=== PATIENT | male | born 1955 | race American Indian/Alaskan Native ===

== ENCOUNTER 2020-03-17 17:46 | Emergency (ER) | payer SELFPAY ==
[2020-03-17 18:06] VITALS: BP 133/83
[2020-03-17] MEDS ORDERED: LIDOCAINE-MPF (1%) 10 MG/1 ML VIAL 5 ML INFILTRATI ONE (18:11)
[2020-03-17] MEDS ORDERED: BUPIVACAINE/PF (0.5%) 5 MG/1 ML 10 ML VIAL INFILTRATI ONE (18:11)
[2020-03-17] MEDS ORDERED: HYDROcodone/ACETAMINOPHEN 5-325 MG TAB PO ONE (18:11)
--- NOTE | 2020-03-17 18:20 | Emergency Department Report ---
- General Chief Complaint: Laceration/Recheck/Suture Stated Complaint: LFT FINGER LAC/PAIN Time Seen by Provider: 03/17/20 18:06 Source: patient Mode of arrival: Ambulatory Limitations: No Limitations - History of Present Illness Initial Comments: Patient is a 65-year-old male who presents emergency room with complaints of a laceration to the left pinky finger that occurred approximately 20 minutes prior to arrival. He states that he accidentally slipped and cut his finger with a drywall knife. He denies anything getting into the finger. He denies any glass involvement. He is able to move the pinky. He denies any numbness or weakness. Bleeding is currently controlled with a dressing placed by triage staff. He states he last had a tetanus immunization approximately 2 to 3 months ago. He has a past medical history of BPH. No allergies to medications. - Related Data Previous Rx's Medication Instructions Recorded Last Taken Type Acetaminophen/Codeine [Tylenol 1 tab PO Q6H PRN #10 tab 03/17/20 Unknown Rx /Codeine # 3 tab] cephALEXin [Keflex] 500 mg PO BID 7 Days #14 cap 03/17/20 Unknown Rx Allergies Allergy/AdvReac Type Severity Reaction Status Date / Time No Known Allergies Allergy Unverified 03/17/20 17:50 ED Review of Systems ROS: Stated complaint: LFT FINGER LAC/PAIN Other details as noted in HPI Comment: All other systems reviewed and negative ED Past Medical Hx - Past Medical History Previous Medical History?: Yes Additional medical history: BPH - Surgical History Past Surgical History?: No - Social History Smoking Status: Never Smoker Substance Use Type: None - Medications Home Medications: Home Medications Medication Instructions Recorded Confirmed Last Taken Type Acetaminophen/Codeine [Tylenol 1 tab PO Q6H PRN #10 tab 03/17/20 Unknown Rx /Codeine # 3 tab] cephALEXin [Keflex] 500 mg PO BID 7 Days #14 cap 03/17/20 Unknown Rx ED Physical Exam - General Limitations: No Limitations General appearance: alert, in no apparent distress - Head Head exam: Present: atraumatic, normocephalic - Eye Eye exam: Present: normal appearance - ENT ENT exam: Present: mucous membranes moist - Extremities Exam Extremities exam: Present: other (3 cm irregular circular flap present to the dorsal, distal left pinky, no muscle/tendon involvement, no obvious foreign body, FROM of the left wrist, hand, and digits, no deformity, no obvious joint laxity, neurovascularly intact) - Neurological Exam Neurological exam: Present: alert, oriented X3 - Psychiatric Psychiatric exam: Present: normal affect, normal mood - Skin Skin exam: Present: warm, dry ED Course Vital Signs 03/17/20 17:50 Temperature 98.2 F Pulse Rate 73 Respiratory 16 Rate Blood Pressure 133/83 O2 Sat by Pulse 96 Oximetry - Laceration /Wound Repair Left Distal Dorsal Finger Wound Location: upper extremity (dorsal surface of the distal left pinky) Wound Length (cm): 3 Wound's Depth, Shape: irregular, flap Wound Explored: clean Irrigated w/ Saline (ccs): 500 Betadine Prep?: Yes Anesthesia: 1% Lidocaine, 0.5% Sensorcaine Volume Anesthetic (ccs): 6 (3 cc of 1% lidocaine without epi, 3 cc of 0.5% Bupivacaine) Wound Debrided: moderate Wound Repaired With: sutures Suture Size/Type: 4:0 Number of Sutures: 11 Layer Closure?: No Sterile Dressing Applied?: Yes Progress: Wound irrigated with saline and thoroughly scrubbed with Betadine, no foreign body identified, no muscle or tendon involvement, digital block performed with 6 cc of anesthetic, it was a mix of 3 cc of 1% lidocaine without epinephrine and 3 cc of 0.5% bupivacaine, Betadine prep again, sterile gloves worn, sterile drapes applied, 4-0 Prolene used for skin closure, 11 sutures placed, patient tolerated well, bleeding controlled, sterile dressing applied, no complications ED Medical Decision Making - Medical Decision Making Patient is a 65-year-old male who presents emergency room with complaints of a laceration to the left pinky finger that occurred approximately 20 minutes prior to arrival. He states that he accidentally slipped and cut his finger with a drywall knife. He denies anything getting into the finger. He denies any glass involvement. He is able to move the pinky. He denies any numbness or weakness. Bleeding is currently controlled with a dressing placed by triage staff. He states he last had a tetanus immunization approximately 2 to 3 months ago. He has a past medical history of BPH. No allergies to medications. Vitals are normal. On exam: 3 cm irregular circular flap present to the dorsal, distal left pinky, no muscle/tendon involvement, no obvious foreign body, FROM of the left wrist, hand, and digits, no deformity, no obvious joint laxity, neurovascularly intact. Wound irrigated with saline and thoroughly scrubbed with Betadine and repaired per procedure note. Patient given prescription for Keflex and Tylenol with codeine. Advised patient Please take medication as prescribed. Do not drive or operate heavy machinery while taking pain medication. Please have sutures removed in 10 days. Keep area clean, dry, covered. May wash with soap and water and immediately dry. No hot tub, no pool, no soaking in water. Follow-up with a primary care doctor for reexamination. Return to emergency room for any new or worsening symptoms or any signs of infection despite antibiotic therapy. Critical care attestation.: If time is entered above; I have spent that time in minutes in the direct care of this critically ill patient, excluding procedure time. ED Disposition Clinical Impression: Laceration of left little finger Qualifiers: Encounter type: initial encounter Damage to nail status: without damage Foreign body presence: without foreign body Qualified Code(s): S61.217A - Laceration without foreign body of left little finger without damage to nail, initial encounter Disposition: - TO HOME OR SELFCARE Is pt being admited?: No Does the pt Need Aspirin: No Condition: Stable Instructions: Suture Care (ED), Laceration (ED) Additional Instructions: Please take medication as prescribed. Do not drive or operate heavy machinery while taking pain medication. Please have sutures removed in 10 days. Keep area clean, dry, covered. May wash with soap and water and immediately dry. No hot tub, no pool, no soaking in water. Follow-up with a primary care doctor for reexamination. Return to emergency room for any new or worsening symptoms or any signs of infection despite antibiotic therapy. Prescriptions: cephALEXin [Keflex] 500 mg PO BID 7 Days #14 cap Acetaminophen/Codeine [Tylenol /Codeine # 3 tab] 1 tab PO Q6H PRN #10 tab PRN Reason: Pain , Severe (7-10) Referrals: JOSHUA RICHARDSON MD [Staff Physician] - 3-5 Days [facility] [Provider Group] - 3-5 Days Time of Disposition: 19:30 Print Language: CROATIAN
== END 2020-03-17 20:00 | disposition home or self-care (01) ==
LOC: ED 17:46
PROC: 0HQGXZZ Repair Left Hand Skin, External Approach (ICD-10-PCS; principal; 2020-03-17)
DX: S61.217A Laceration without foreign body of left little finger without damage to nail, initial encounter (principal); Z79.899 Other long term (current) drug therapy; W26.0XXA Contact with knife, initial encounter; Y93.89 Activity, other specified; Y92.89 Other specified places as the place of occurrence of the external cause; Y99.8 Other external cause status

== ENCOUNTER 2020-03-26 10:54 | Emergency (ER) | payer SELFPAY ==
[2020-03-26 11:14] VITALS: BP 140/72
--- NOTE | 2020-03-26 11:29 | Emergency Department Report ---
Suture/Staple Removal - [facility] Chief Complaint: Laceration/Recheck/Suture Stated Complaint: LFT HAND STITCHS REMOVED Time Seen by Provider: 03/26/20 11:28 When Sutures or Leroy Placed: 03/17/2020 Wound Location: left pinky ED Review of Systems ROS: Stated complaint: LFT HAND STITCHS REMOVED Other details as noted in HPI Comment: All other systems reviewed and negative ED Past Medical Hx - Past Medical History Previous Medical History?: Yes Additional medical history: BPH - Surgical History Past Surgical History?: No - Social History Smoking Status: Never Smoker Substance Use Type: None - Medications Home Medications: Home Medications Medication Instructions Recorded Confirmed Last Taken Type Acetaminophen/Codeine [Tylenol 1 tab PO Q6H PRN #10 tab 03/17/20 Unknown Rx /Codeine # 3 tab] cephALEXin [Keflex] 500 mg PO BID 7 Days #14 cap 03/17/20 Unknown Rx Neomycin/Bacitracin/Polymyxinb 1 applicatio TP BID #1 oint...g. 03/26/20 Unknown Rx [Triple Antibiotic Ointment] Sulfamethoxazole/Trimethoprim 1 each PO BID 7 Days #14 tablet 03/26/20 Unknown Rx [Bactrim DS TAB] Suture Removal Exam - Exam General: Vital signs noted. No distress. Alert and acting appropriately. Wound: Yes Drainage (clear/bloody with yellow scabbing present), No Pathologic Erythema, No Tenderness, No Wound Dehiscence Other Systems: All other systems reviewed and are unremarkable. ED Course Vital Signs 03/26/20 11:10 Temperature 98.0 F Pulse Rate 71 Respiratory 15 Rate Blood Pressure 140/72 O2 Sat by Pulse 97 Oximetry ED Recheck MDM - Medical Decision Making Patient presents for suture removal of the left pinky. Patient had the sutures placed on 03/17/2020. Patient states he has noticed a small amount of drainage from the pinky. He states he did complete the Keflex that he was prescribed. He states the pain has been improving. He denies any fever, chills, nausea, vomiting, diarrhea. On exam there is a's very small amount of drainage with some scabbing present, there is a small area of skin necrosis to the distal end of the left pinky where the flap from laceration was reattached advised pt that this area could callus over and eventually fall off, no obvious fluctuance, no obvious sign of abscess, all sutures removed without difficulty, no wound dehiscence. Patient will be placed on oral antibiotics and given antibiotic ointment for very small area of cellulitis. advised pt please use medication as prescribed. please wash area with antibacterial soap and water twice a day and immediately dry. keep clean, dry, covered. no hot tub, no pool, no soaking in water. have area reexamined in 3 days by a primary care doctor. return to the emergency room for any new or worsening symptoms or any worsening signs of infection despite antibiotics. Critical care attestation.: If time is entered above; I have spent that time in minutes in the direct care of this critically ill patient, excluding procedure time. ED Disposition Clinical Impression: Visit for suture removal Cellulitis Qualifiers: Site of cellulitis: extremity Site of cellulitis of extremity: upper extremity Laterality: left Qualified Code(s): L03.114 - Cellulitis of left upper limb Disposition: TO HOME OR SELFCARE Is pt being admited?: No Does the pt Need Aspirin: No Condition: Stable Instructions: Suture Removal (ED), Cellulitis (ED), Acute Wound Care (ED) Additional Instructions: please use medication as prescribed. please wash area with antibacterial soap and water twice a day and immediately dry. keep clean, dry, covered. no hot tub, no pool, no soaking in water. have area reexamined in 3 days by a primary care doctor. return to the emergency room for any new or worsening symptoms or any worsening signs of infection despite antibiotics. Prescriptions: Sulfamethoxazole/Trimethoprim [Bactrim DS TAB] 1 each PO BID 7 Days #14 tablet Neomycin/Bacitracin/Polymyxinb [Triple Antibiotic Ointment] 1 applicatio TP BID #1 oint...g. Referrals: JOSHUA RICHARDSON MD [Staff Physician] - 3-5 Days [facility] [Provider Group] - 3-5 Days Time of Disposition: 11:42 Print Language: ESTONIAN
== END 2020-03-26 11:53 | disposition home or self-care (01) ==
LOC: ED 10:54
DX: L03.012 Cellulitis of left finger (principal); N40.0 Benign prostatic hyperplasia without lower urinary tract symptoms; Z48.02 Encounter for removal of sutures; Z79.899 Other long term (current) drug therapy
CPT/HCPCS: 99282